=== PATIENT | male | born 1980 | race African-American/Black ===

== ENCOUNTER 2017-03-26 16:59 | Emergency (ER) | payer OTHER ==
[~2017-03-26] VITALS: Ht 180.3 cm; Wt 98.4 kg
[2017-03-26 17:39] VITALS: BP 142/80
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
== END 2017-03-26 18:40 | disposition home or self-care (01) ==
LOC: ER 18:40
DX: S40.011A Contusion of right shoulder, initial encounter (principal); V43.63XA Car passenger injured in collision with pick-up truck in traffic accident, initial encounter; Y93.89 Activity, other specified; Y99.8 Other external cause status; Y92.488 Other paved roadways as the place of occurrence of the external cause
CPT/HCPCS: 73030; 99284

== ENCOUNTER 2018-01-11 21:01 | Emergency (ER) | payer OTHER ==
[2018-01-11] MEDS ORDERED: LIDOCAINE WITH 8.4% SOD BICARB 3 ML DISP.SYRIN. ×2 (21:24)
[2018-01-11] MEDS: LIDOCAINE WITH 8.4% SOD BICARB 3 ML DISP.SYRIN. INJ ×2 (21:30)
== END 2018-01-11 21:36 | disposition home or self-care (01) ==
LOC: ER 21:01
DX: S61.412A Laceration without foreign body of left hand, initial encounter (principal); W26.8XXA Contact with other sharp object(s), not elsewhere classified, initial encounter; Y93.89 Activity, other specified; Y92.89 Other specified places as the place of occurrence of the external cause; Y99.8 Other external cause status
CPT/HCPCS: 12001; 99283-25

== ENCOUNTER 2018-08-08 13:46 | Emergency (ER) | payer OTHER ==
[2018-01-11 21:05] VITALS: BP 149/78
[~2018-08-08 13:46] MED LIST: CEPH500T PO
== END 2018-08-08 13:55 | disposition left against medical advice (07) ==
LOC: ER 13:46
DX: S89.92XA Unspecified injury of left lower leg, initial encounter (principal); Z53.21 Procedure and treatment not carried out due to patient leaving prior to being seen by health care provider; W17.89XA Other fall from one level to another, initial encounter; Y93.89 Activity, other specified; Y92.89 Other specified places as the place of occurrence of the external cause; Y99.8 Other external cause status

== ENCOUNTER 2018-11-05 12:11 | Emergency (ER) | payer MEDICAID, OTHER ==
[~2018-11-05] VITALS: Ht 180.3 cm; Wt 96.2 kg
[2018-11-05 12:26] VITALS: BP 124/72
[2018-11-05] MEDS ORDERED: ALBUTEROL SULFATE 2.5 MG/3 ML NEBU. NEB ONE (12:45)
--- NOTE | 2018-11-05 13:24 | RAD ---
Chest, PA and Lateral: Technique: PA and lateral views of the chest were obtained. History: Shortness of breath. Comparison: None. Findings: The heart and pulmonary vasculature appear within normal limits. Mild airspace opacities identified in the left lower lobe lung likely atelectasis or infiltrate.. The pleural margins are clear. Impression: Faint airspace opacity identified in the left lower lobe lung likely atelectasis or early pneumonia. Follow-up to resolution... Electronically signed by: Apollo Ceron MD (11/05/2018 1:21 PM) [id number]
[2018-11-05] MEDS ORDERED: AZIT250T PO (13:41)
[2018-11-05] MEDS ORDERED: HYDR5SUS PO (13:41)
--- NOTE | 2018-11-05 13:42 | PHYS DOC ---
Past Medical History Past Medical History: No Pertinent History Past Surgical History: No Surgical History Additional Information: Hasn't smoked since onset of illness Alcohol Use: Rarely Drug Use: None Adult General Chief Complaint Chief Complaint: COUGH HPI HPI Patient is a 38 year old male who presents with cough x 2 weeks. The patient states that it is a productive cough. He states that he has coughing fits. He denies fever or body aches. He states that the cough has been worsening. Nothing is relieving the condition. He denies a history of asthma or COPD. Review of Systems Review of Systems Constitutional: Denies fever or chills [] Eyes: Denies change in visual acuity, redness, or eye pain [] HENT: Denies nasal congestion or sore throat [] Respiratory: See history of present illness Cardiovascular: No additional information not addressed in HPI [] GI: Denies abdominal pain, nausea, vomiting, bloody stools or diarrhea [] : Denies dysuria or hematuria [] Musculoskeletal: Denies back pain or joint pain [] Integument: Denies rash or skin lesions [] Neurologic: Denies headache, focal weakness or sensory changes [] Endocrine: Denies polyuria or polydipsia [] All other systems were reviewed and found to be within normal limits, except as documented in this note. Current Medications Current Medications Current Medications Medications (Trade) Dose Ordered Sig/Ksenia Start Time Stop Time Status Last Admin Dose Admin Albuterol Sulfate (Ventolin Neb Soln) 2.5 mg 1X ONCE 11/05/18 12:45 11/05/18 12:46 DC 11/05/18 12:51 2.5 MG Allergies Allergies Allergies Coded Allergies Type Severity Reaction Last Updated Verified No Known Drug Allergies 01/11/18 No Physical Exam Physical Exam Constitutional: Well developed, well nourished, no acute distress, non-toxic appearance. [] HENT: Normocephalic, atraumatic, bilateral external ears normal, oropharynx moist, no oral exudates, nose normal. [] Eyes: PERRLA, EOMI, conjunctiva normal, no discharge. [] Neck: Normal range of motion, no tenderness, supple, no stridor. [] Cardiovascular:Heart rate regular rhythm, no murmur [] Lungs & Thorax: Bilateral breath sounds decreased bilaterally. Abdomen: Bowel sounds normal, soft, no tenderness, no masses, no pulsatile masses. [] Skin: Warm, dry, no erythema, no rash. [] Back: No tenderness, no CVA tenderness. [] Extremities: No tenderness, no cyanosis, no clubbing, ROM intact, no edema. [] Neurologic: Alert and oriented X 3, normal motor function, normal sensory function, no focal deficits noted. [] Psychologic: Affect normal, judgement normal, mood normal. [] Current Patient Data Vital Signs Vital Signs Date Time Temp Pulse Resp B/P (MAP) Pulse Ox O2 Delivery O2 Flow Rate FiO2 11/05/18 12:51 98 Room Air 11/05/18 12:26 98.8 68 18 124/72 (89) 98.8 EKG EKG [] Radiology/Procedures Radiology/Procedures []PATIENT: JULISSA SALAS LACCOUNT: [id number]#: [id number] : 1980 LOCATION: ER AGE: 38 SEX: M EXAM STATUS: REG ER ORD. PHYSICIAN: RAPHAEL DEL ROSARIO APRN REASON: cough x 2 weeks PROCEDURE: CHEST PA & LATERAL Chest, PA and Lateral: Technique: PA and lateral views of the chest were obtained. History: Shortness of breath. Comparison: None. Findings: The heart and pulmonary vasculature appear within normal limits. Mild airspace opacities identified in the left lower lobe lung likely atelectasis or infiltrate.. The pleural margins are clear. Impression: Faint airspace opacity identified in the left lower lobe lung likely atelectasis or early pneumonia. Follow-up to resolution... Electronically signed by: Apollo Ceron MD (11/05/2018 1:21 PM) [id number] DICTATED and SIGNED BY: APOLLO CERON MD DATE: 11/05/18 1315 Course & Med Decision Making Course & Med Decision Making Pertinent Labs and Imaging studies reviewed. (See chart for details) []The patient received an albuterol breathing treatment in the emergency department with a shovel resolution of his symptoms. Dragon Disclaimer Dragon Disclaimer This electronic medical record was generated, in whole or in part, using a voice recognition dictation system. Departure Departure Impression: Primary Impression: Pneumonia Disposition: 01 HOME, SELF-CARE Condition: STABLE Referrals: NO PCP (PCP) Patient Instructions: Pneumonia, Adult Additional Instructions: Take the medications as directed. Do not drive or operate heavy machinery while taking the cough medication. Follow-up with your primary care provider for recheck in one week if not improving or return to the emergency department if worsening. Scripts Hydrocodone/Chlorphen Polis (HYDROCODONE-CHLORPHENIRAM SUSP) 5 Ml Shayy.er.[id number] 5 ML PO PRN Q12HR PRN for COUGH, #120 ML 0 Refills Prov: RAPHAEL DEL ROSARIO APRN 11/05/18 Azithromycin (ZITHROMAX) 250 Mg Tablet 1 PKG PO UD for pneumonia, #1 PKG Prov: RAPHAEL DEL ROSARIO APRN 11/05/18 RAPHAEL DEL ROSARIO APRN Nov 05, 2018 13:42
== END 2018-11-05 13:50 | disposition home or self-care (01) ==
LOC: ER 12:11
DX: J18.9 Pneumonia, unspecified organism (principal)
CPT/HCPCS: 71046; 94640; 99283; J7613